=== PATIENT | male | born 1965 ===

== ENCOUNTER 2019-01-04 15:46 | Emergency (ER) | payer SELFPAY ==
[~2019-01-04 15:46] MED LIST: ISOVUE-370 76%-LOCM 1 ML ONE
[2019-01-04 16:31] LABS: Mean Corpuscular HGB CONC 34.7 g/dL (32.0-36.0); Mean Corpuscular Hemoglobin 32.4 pg (27.0-31.0); Mean Corpuscular Volume 93.5 fL (78.0-98.0); Mean Platelet Volume 8.7 fL (7.4-10.4); Platelet Count 207 thou/uL (130-400); RBC Distribution Width 11.4 % (11.5-14.5); Red Blood Cell (RBC) Count 4.63 mill/uL (4.70-6.10); White Blood Cell (WBC) Count 19.1 thou/uL (4.8-10.8)
[2019-01-04 16:37] LABS: INR-International Normal Ratio 1.2; PTT 29.2 SEC (22.9-36.1); Prothrombin Time 14.8 SEC (12.0-14.7)
[2019-01-04 16:52] LABS: ALT (SGPT) 16 U/L (8-55); AST (SGOT) 15 U/L (5-34); Albumin 3.5 g/dL (3.5-5.0); Alkaline Phosphatase 108 U/L (40-110); Anion Gap 14 mmol/L (10-20); BUN (Urea Nitrogen) 8 mg/dL (8.4-25.7); Bilirubin, Total 1.4 mg/dL (0.2-1.2); Calc. Creatinine Clearance 0 mL/min (70-130); Carbon Dioxide 21 mmol/L (22-29); Chloride 102 mmol/L (98-107); Estimated GFR-MDRD 58; Globulin 3.3 g/dL (2.4-3.5); Glucose 373 mg/dL (70-105); Potassium 3.7 mmol/L (3.5-5.1); Protein, Total 6.8 g/dL (6.0-8.3); Sodium 133 mmol/L (136-145)
--- NOTE | 2019-01-04 16:56 | CT ---
CT pelvis with IV contrast INDICATION: 53-year-old male with left-sided testicular pain COMPARISON: None FINDINGS: There is scrotal swelling and edema with fluid and gas collection present along the posteri or left aspect of the scrotal base. The fluid and gas collection involving the left posterior aspect of the scrotal base extending into the anterior aspect of the left perineum measures 7.5 x 2.6 cm. There are enlarged left inguinal lymph nodes measuring up to 1.5 cm. There is a mildly prominent left common femoral lymph node measuring 1.3 cm. A few mildly prominent lymph nodes seen in the left external iliac chain. These are all likely reactive in nature. No intrapelvic fluid collection is evident. The visualized bladder, prostate, rectum and perirectal soft tissues are withi n normal limits. There is normal appendix in the right lower quadrant. There are bilateral fat-containing inguinal hernias. No acute osseous abnormality is evident. IMPRESSION: Findings most consistent with scrotal cellulitis and scrotal abscess. Scrotal abscess abbott s extend to the left posterior scrotal base into the anterior left aspect of the perineum and measures 7.5 x 2.6 cm. Reactive left inguinal lymphadenopathy.
[2019-01-04] MEDS ORDERED: Sulfameth/Trimethoprim DS 800-160mg TAB ONE (17:24)
[2019-01-04] MEDS ORDERED: Midazolam HCl 2 mg/2 ml Vial ONE (17:24)
[2019-01-04 17:27] LABS: Band 5 % (5-11); Lymphocytes 9 % (21-51); MDiff Complete? YES; Monocytes 10 % (0-10); Neutrophil 74 % (42-75); Platelet Morphology Comment Appears Adequate; RBC Morphology Normal; Reactive Lymphocytes 2 % (0-10)
[2019-01-04] MEDS ORDERED: Lidocaine 1% PF 5 ML VIAL ONE (17:35)
[2019-01-04] MEDS ORDERED: Lidocaine 1% (PF) 30 ML VIAL ONE (17:35)
--- NOTE | 2019-01-04 17:47 | ULT ---
TESTICULAR ULTRASOUND: 01/04/19 HISTORY: Left sided scrotal abscess. Evaluation for torsion COMPARISON: CT of the pelvis done earlier. Real time imaging of the right and left testis shows normal sized testicles to the right. Right measu res 4.6 and the left measures 4.4 cm. No testicular mass. Right and left epididymal regions are normal in appearance. A small left hydrocele was noted. Superior to the left testicle is a heterogeneous ill-defined area. This corresponds to some of the in flammatory changes and skin changes noted on the previous CT. No defined abscess collection is seen. Doppler evaluation with spectral analysis: Normal flow is shown to the testes and epididymal regions. IMPRESSION: No evidence of testicular torsion. Vague heterogeneous area located superior to the left testicle. Th ere is not a definite defined fluid collection. POS: BAUDILIO
--- NOTE | 2019-01-05 01:08 | CON ---
DATE OF CONSULTATION: 01/04/2019 CONSULTED: ER. REASON FOR CONSULTATION: Concern for torsion with possible infection. HISTORY OF PRESENT ILLNESS: Mr. Mcintyre is a 53-year-old male, who presented with a 3-day history of testicular pain on the left. He states that he had a "pimple" below his scrotum on the left side. He popped it about 3 days ago and subsequently stated that he was doing okay immediately afterwards. He did drink a lot a Gatorade when he was outside the subsequent day and started noticing that he was having worsening pain. He is diabetic and the Gatorade was full sugar and he stated he drank about 4 Gatorades that day. The pain got subsequently worsened in the left groin and his scrotum started to swell up and become red. He started having fevers and so he came to [facility], where he underwent a scrotal ultrasound, where they stated that he had diminished blood flow on the left testicle. There was concern for testicular torsion or an infected/ testicle and he was transferred from [facility] to [facility]. I was consulted by the emergency room staff and upon my visitation with the patient, given the history and documentation of the ultrasound report, I was not entirely convinced that the ultrasound was accurate. I ordered a new scrotal ultrasound with Doppler to be done here at [place] and the ER staff ordered a CT pelvis with contrast. The ultrasound did not demonstrate any evidence of torsion. It showed adequate and good perfusion to the testicle with no significant abnormalities of the testicles bilaterally. The CT showed a scrotal abscess that was extending down into the perineum and measuring about approximately 7 x 3 cm with gas present. I discussed this with the patient and told him that he likely had a perineal abscess instead. ALLERGIES: NONE. HOME MEDICATIONS: Metformin 500 mg p.o. b.i.d. PAST MEDICAL HISTORY: Diabetes mellitus type 2. PAST SURGICAL HISTORY: None. FAMILY HISTORY: Noncontributory. SOCIAL HISTORY: The patient drinks alcohol socially, but not frequently. Denies illicit drug use. Does not smoke. REVIEW OF SYSTEMS: A 12-point review of systems reviewed and entirely negative other than the patient reporting fevers, scrotal and perineal pain, and the reported history of the pimple, which he popped. Genitourinary; he does not endorse any voiding difficulties, history of hematuria, kidney stones, UTIs, or previous urologic surgeries. PHYSICAL EXAMINATION: VITAL SIGNS: Temperature is not taken, blood pressure 121/68, pulse 97, respirations 18, oxygen saturation 94% on room air. GENERAL: No apparent distress, communicating, and alert, appears stated age, well nourished, well developed, obese. HEENT: Normocephalic, atraumatic. Pupils are symmetric and round. Sclerae are nonicteric. Moist mucous membranes. Trachea midline. CARDIOVASCULAR: Regular rate and rhythm. Normal S1, S2. Symmetric pulses. CHEST: No increased work of breathing. Symmetric expansion. LUNGS: Clear anteriorly. ABDOMEN: Soft, nontender, and nondistended. Protuberant belly. Positive bowel sounds. No rebound, guarding, or peritoneal signs. No suprapubic tenderness. GENITOURINARY: Penis is unremarkable without lesions or swelling. There is moderate scrotal edema with scrotal wall thickening and erythema. No evidence of crepitus or Basim gangrene. Testicles are bilaterally descended. There is minimal tenderness of the left testicle. Right testicle is normal. RECTAL: Deferred. There is lymphadenopathy on the left inguinal chain. PERINEUM: There is significant induration and tenseness with sensitivity of the left perineal area. There is no obvious head of abscess, but in the region of where the abscess was seen on CT scan. This was correlated with the area of induration on the left perineum. EXTREMITIES: No clubbing, cyanosis, or edema. MUSCULOSKELETAL: No joint deformities or joint erythema noted. Full range of motion. No inflammation within the hands or feet. NEUROLOGIC: Cranial nerves 2 through 12 grossly intact. No focal or sensory motor deficit deficits identified. LYMPHATICS: Lymphadenopathy. No cervical, supraclavicular, or popliteal lymph nodes. There is an enlarged lymph node in the left inguinal chain than on the right. PSYCHIATRIC: Alert and oriented x3. Appropriate mood and affect. LABORATORY EVALUATION: The full set of labs are in the [employer] system, which I have reviewed. Of note, the patient's creatinine is normal. White blood cell count is elevated at 19,000. CT demonstrates fluid and air collection in the left perineum extending into the base of the scrotum consistent with a scrotal abscess. Ultrasound again demonstrated no torsion with normal-appearing testicles bilaterally. Procedure note: The patient was consented for incision and drainage of perineal abscess at bedside. Risks were discussed including worsening infection, damage to spermatic cord, bleeding, and need for more surgery. He agreed to proceed forward. He was given moderate conscious sedation by the ER staff after being prepped with chlorhexidine. Lidocaine 10 mL was infiltrated into the surrounding tissues around the abscess cavity. Using an 11 blade, the abscess cavity was opened with immediate spurt of brownish fluid with release of air and gas as well as a significant amount of purulent material. A culture was taken and sent off for routine Gram stain and culture and sensitivities. The incision was opened up for approximately 4 cm vertically. The inside cavity was completely broken up for all loculations with the Yankauer suction. Once completely broken up, the abscess cavity was copiously irrigated with hydrogen peroxide and then irrigated clean with normal saline. It was then packed with iodoform gauze and then covered with 4x4s and then the patient had mesh panties placed. The patient tolerated the procedure well. Estimated blood loss is approximately 30 mL. Retained packing is a quarter-inch iodoform gauze. No other tubes or drains. Specimen is Gram stain. ASSESSMENT AND PLAN: A 53-year-old male with perineal abscess, likely complicated by diabetes and brought on by poor blood sugar control. I had a discussion with the patient about proper diet and ensuring that he is taking his medications. He does need to follow up with his primary care doctor regarding his diabetes management. I would like to see the patient early next week to ensure that his abscess is healing properly. He is to notify me for any fevers, worsening redness, or swelling. We will start him on Bactrim DS one tab p.o. b.i.d. to treat a potential staph and adjust antibiotics based on culture results. It is imperative to keep his blood sugar in control. The family did notify me they are planning a cruise next week. I recommended the patient not to go on his cruise as most water activities, aquatic activities, and cruise type foods will be not conducive to his healing and may increase risk for infection and hyperglycemia. We can provide documentation that the patient should not go on a cruise. I went over wound care instructions with the girlfriend, who states that she will be doing the wound care and dressing changes which will need to be performed once a day. I will have the patient come back to see me again on Monday to ensure that he is healing adequately. Job ID: [id number]
== END 2019-01-04 19:48 | disposition home or self-care (01) ==
LOC: ERS 15:46
DX: L02.215 Cutaneous abscess of perineum (principal); L03.315 Cellulitis of perineum; E11.9 Type 2 diabetes mellitus without complications; Z79.84 Long term (current) use of oral hypoglycemic drugs
CPT/HCPCS: 10060; 36415; 36416; 72193; 76870; 80053; 85025; 85610; 85730; 86850; 86900; 86901; 87070; 87205; 93005; 93976; 94760; 96360; 99156; 99157; J2001; J2250